=== PATIENT | female | born 1955 | race Caucasian/White ===

== ENCOUNTER → 2016-08-20 | Outpatient (CLI) | payer OTHER | END | disposition home or self-care (01) | LOC: LAB.O 09:50 | PROVIDERS: ATTEND Obstetrics & Gynecology | DX: Z01.411 Encounter for gynecological examination (general) (routine) with abnormal findings (principal); E78.5 Hyperlipidemia, unspecified; N95.1 Menopausal and female climacteric states; E87.70 Fluid overload, unspecified ==

== ENCOUNTER → 2016-09-17 | Outpatient (CLI) | payer OTHER ==
--- NOTE | 2016-09-17 16:25 | MAM ---
History: Well woman exam. Date of exam: 09/17/2016 Services provided: Bilateral full field digital screening mammography. CAD, the images were reviewed with R2 computer aided detection. FINDINGS: Glandular tissue is scattered glandular contour with increased mammographic density. Comparison with 2014 exam. No dominant mass, architectural distortion or clustered microcalcification. Stable distribution to the glandular parenchyma. IMPRESSION: Benign exam Recommendation: Routine annual mammography BIRAD CATEGORY: 2 BENIGN Electronically signed by: Renee Ramos MD 09/17/2016 4:25 PM CDT Workstation: [id number]
== END | disposition home or self-care (01) ==
LOC: MAMMO 09:49
PROVIDERS: ATTEND Obstetrics & Gynecology
DX: Z12.31 Encounter for screening mammogram for malignant neoplasm of breast (principal)
CPT/HCPCS: 36415; 82607; 85025; 85610; 85730; G0202

== ENCOUNTER 2016-11-20 15:36 | Emergency (ER) | payer OTHER ==
--- NOTE | 2016-11-20 15:55 | RAD ---
PROCEDURE: Foot,Right 2 Views CLINICAL HISTORY: lateral right foot pain. INDICATION: Same as above COMPARISON: None . TECHNIQUE: 2.0 Views of the right foot were done. FINDINGS: There is an age indeterminate nonunited fracture in the proximal aspect of the fifth metatarsal bone of the right foot The joint spaces are relatively well-maintained. There is no evidence of bony tarsal coalition. The soft tissues are radiographically unremarkable. There is no visualization of any radiopaque foreign bodies in the visualized soft tissues. IMPRESSION: There is an age indeterminate nonunited fracture in the proximal aspect of the fifth metatarsal bone of the right foot Electronically signed by: Jorge Boston MD 11/20/2016 3:54 PM CDT Workstation: [id number]
--- NOTE | 2016-11-20 16:05 | ED.PDOC ---
History of Present Illness - General Chief Complaint: Lower Extremity Injury Stated Complaint: right lateral foot pain Time Seen by Provider: 11/20/16 15:39 Source: patient, RN notes reviewed Exam Limitations: no limitations Additional Information: Patient was going down the stairs from a boat when she felt a pop and sudden pain along the lateral aspect of her right foot. She presented to the ER to see if she had a fracture. She is currently being seen by a Rotary Drill Operator for left foot /heel bone spur and achilles tendonitis. - History of Present Illness Occurred: just prior to arrival Pain - Lower Extremity: moderate: Right Foot Method of Injury: other - going down the stairs off the back of a boat Improving Factors: immobilization Worsening Factors: movement - /weight-bearing Allergies/Adverse Reactions: Allergies Amitriptyline Allergy (Unverified 01/10/13 12:57) Home Medications: Ambulatory Orders Pantoprazole Suspension [Protonix Suspension] 40 mg PO DAILY 01/10/13 Trazodone HCl 150 mg PO HS 01/10/13 Esterified Estrogens [Menest] 0.625 mg PO AM 05/03/13 Hctz 50 mg/Triamterene 75 mg [Maxzide-50] 1 ea PO AM 05/03/13 Ipratropium/Albuterol Inhaler [Combivent Inhaler] 1 puff INH .Q4 PRN 05/03/13 Alendronate Sodium 70 mg PO ONCE 08/13/13 Lovastatin 20 mg PO HS 08/13/13 Meloxicam [Mobic] 7.5 mg PO HS 08/13/13 Pramipexole Dihydrochloride [Mirapex] 0.125 mg PO DAILY 08/13/13 Budesonide-Formoterol Fumarate [Symbicort] 1 aer IN BID 03/24/15 Calcium Carbonate-Vitamin D [Calcium 600+D 600-200 mg-Unit] 1 tab PO BID Multiple Vitamin [Multi Vitamin Daily] 1 tab PO DAILY 03/24/15 Review of Systems - Review of Systems Constitutional: States: no symptoms reported EENTM: States: no symptoms reported Respiratory: States: no symptoms reported Cardiology: States: no symptoms reported Gastrointestinal/Abdominal: States: no symptoms reported Genitourinary: States: no symptoms reported Musculoskeletal: States: see HPI Skin: States: no symptoms reported Neurological: States: no symptoms reported Endocrine: States: no symptoms reported Hematologic/Lymphatic: States: no symptoms reported Past Medical History (General) - Patient Medical History Hx Seizures: No Hx Stroke: No Hx Asthma: Yes Hx of COPD: No Hx Cardiac Disorders: No Hx Congestive Heart Failure: No Hx Pacemaker: No Hx Hypertension: No Hx Diabetes: No Hx MRSA: No - Social History Hx Alcohol Use: No Hx Substance Use: No Hx Physical Abuse: No Hx Emotional Abuse: No Family Medical History - Family History Grandparents Family History: No Known Physical Exam - Physical Exam General Appearance: Alert, Comfortable, No apparent distress, Well Developed, Well Groomed, Well Hydrated, Well Nourished Eyes, Ears, Nose, Throat: PERRL/EOMI Neck: non-tender, full range of motion, supple Cardiovascular/Respiratory: regular rate, rhythm, normal peripheral pulses Gastrointestinal/Abdominal: non-tender Thigh/Hip: normal ROM Leg: normal ROM Knee: normal ROM Ankle: no evidence of injury, normal ROM Foot: no evidence of injury, normal ROM, bone tenderness - along lateral aspect of foot near the base of the 5th metatarsal Neuro/Tendon: normal sensation, normal motor functions, normal tendon functions , responds to pain, no evidence tendon injury Mental Status: alert, oriented x 3 Skin: normal color Progress - Progress Progress: 11/20/16 16:05 X-Ray Report: PROCEDURE: Foot,Right 2 Views CLINICAL HISTORY: lateral right foot pain. INDICATION: Same as above COMPARISON: None . TECHNIQUE: 2.0 Views of the right foot were done. FINDINGS: There is an age indeterminate nonunited fracture in the proximal aspect of the fifth metatarsal bone of the right foot The joint spaces are relatively well-maintained. There is no evidence of bony tarsal coalition. The soft tissues are radiographically unremarkable. There is no visualization of any radiopaque foreign bodies in the visualized soft tissues. IMPRESSION: There is an age indeterminate nonunited fracture in the proximal aspect of the fifth metatarsal bone of the right foot Electronically signed by: Jorge Boston MD 11/20/2016 3:54 PM CDT Workstation: [id number] Dictated By: Jorge Santiago Signed By: Jorge Santiago Dictated Date/Time: 11/20/16 1539 Transcribed Date/Time: 11/20/16 1539 Wildland Firefighter: JOSE M Signed Date/Time: 11/20/16 1554 CC: Procedures - Splinting Right Foot Hand-Made Type: orthoglass Splint: posterior walking Pre-Proc Neuro Vasc Exam: normal Post-Proc Neuro Vasc Exam: normal Departure - Departure Clinical Impression: Fracture of fifth metatarsal bone Qualifiers: Encounter type: initial encounter Fracture type: closed Fracture alignment: nondisplaced Laterality: right Qualified Code(s): S92.354A - Nondisplaced fracture of fifth metatarsal bone, right foot, initial encounter for closed fracture Time of Disposition: 16:25 Disposition: Discharge to Home or Self Care Condition: Fair Instructions: DI for Foot Fracture Referrals: Rei Pickens III, MD [Primary Care Provider] - 1-2 Weeks Home Medications: Ambulatory Orders Pantoprazole Suspension [Protonix Suspension] 40 mg PO DAILY 01/10/13 Trazodone HCl 150 mg PO HS 01/10/13 Esterified Estrogens [Menest] 0.625 mg PO AM 05/03/13 Hctz 50 mg/Triamterene 75 mg [Maxzide-50] 1 ea PO AM 05/03/13 Ipratropium/Albuterol Inhaler [Combivent Inhaler] 1 puff INH .Q4 PRN 05/03/13 Alendronate Sodium 70 mg PO ONCE 08/13/13 Lovastatin 20 mg PO HS 08/13/13 Meloxicam [Mobic] 7.5 mg PO HS 08/13/13 Pramipexole Dihydrochloride [Mirapex] 0.125 mg PO DAILY 08/13/13 Budesonide-Formoterol Fumarate [Symbicort] 1 aer IN BID 03/24/15 Calcium Carbonate-Vitamin D [Calcium 600+D 600-200 mg-Unit] 1 tab PO BID Multiple Vitamin [Multi Vitamin Daily] 1 tab PO DAILY 03/24/15 Additional Instructions: Follow-up with Rotary Drill Operator as scheduled on November 08 for re-evaluation. Ice and elevate right foot for at least 10 to 15 minutes, three to four times a day to help with pain and swelling. Non-weight bearing (use crutches) for 3 to 5 days.
[2016-11-20 16:09] VITALS: BP 149/94; TEMP 98.7; O2SAT 96
== END 2016-11-20 16:39 | disposition home or self-care (01) ==
LOC: ER 15:36
DX: S92.354A Nondisplaced fracture of fifth metatarsal bone, right foot, initial encounter for closed fracture (principal); M77.32 Calcaneal spur, left foot; M76.62 Achilles tendinitis, left leg; Z79.899 Other long term (current) drug therapy; Z88.8 Allergy status to other drugs, medicaments and biological substances; W10.9XXA Fall (on) (from) unspecified stairs and steps, initial encounter; Y92.814 Boat as the place of occurrence of the external cause

== ENCOUNTER → 2017-01-18 | Outpatient (CLI) | payer OTHER | END | disposition home or self-care (01) | LOC: GMAL 10:56 | PROVIDERS: ATTEND Family Medicine | DX: R30.0 Dysuria (principal) ==

== ENCOUNTER → 2017-08-22 | Outpatient (CLI) | payer OTHER | LOC: LAB.O 11:29 | PROVIDERS: ATTEND Obstetrics & Gynecology | DX: Z01.411 Encounter for gynecological examination (general) (routine) with abnormal findings (principal) ==

== ENCOUNTER → 2017-10-06 | Outpatient (CLI) | payer OTHER ==
--- NOTE | 2017-10-07 15:55 | MAM ---
EXAM DESCRIPTION: 3D Screening BILATERAL : Digital Mammography. CLINICAL HISTORY: 62 years Female SCREENING . No complaints. Remote family history of breast cancer. Childbirth. Postmenopausal. Has taken HRT 5 or more years ago. Bilateral cyst aspirations. COMPARISON: 2-D digital screening bilateral study 09/17/2016. Report from prior examination also reviewed. TECHNIQUE: Bilateral CC and MLO projection full-field images, 3-D tomosynthesis digital mammographic technique. CAD not utilized. FINDINGS: The breast parenchymal density pattern is: Scattered areas of fibroglandular density. No skin thickening or nipple retraction. Bilateral solitary microcalcifications. No focal, stellate mass or density, focal asymmetry , and no suspicious microcalcifications bilaterally. Stable mammograms compared to prior study, taking into account differences in mammographic technique IMPRESSION: BI-RADS CATEGORY: 2 - BENIGN FINDINGS. FOLLOW UP: Routine digital bilateral screening, one year interval from 2018. Written communication explaining the IMPRESSION and follow-up, will be mailed to the patient and referring health care provider. According to the [employer], yearly mammograms are recommended starting at age 40 and continuing as long as a woman is in good health. Any breast change noted on a breast self-exam should be reported promptly to the patient's healthcare provider. Breast MRI is recommended for women with an approximately 20-25% or greater lifetime risk of breast cancer, including women with a strong family history of breast or ovarian cancer and women who have been treated for Hodgkin's disease. A negative mammographic report should not delay tissue diagnosis in patients with significant clinical history or physical findings. Extremely dense breast tissue limits the sensitivity of digital mammography. Electronically signed by: Fortunato Mcclellan MD 10/07/2017 3:53 PM CDT
== END ==
LOC: MAMMO 10:00
PROVIDERS: ATTEND Family Medicine
DX: Z12.31 Encounter for screening mammogram for malignant neoplasm of breast (principal)

== ENCOUNTER 2018-02-13 16:26 | Emergency (ER) | payer OTHER ==
[2018-02-13 17:04] VITALS: TEMP 99
--- NOTE | 2018-02-13 17:07 | RAD ---
EXAM DESCRIPTION: Chest,2 Views CLINICAL HISTORY: RIGHT SIDED PAIN WITH INSPIRATION COMPARISON: None. FINDINGS: Single view of the chest is submitted. Cardiac silhouette is normal. There is mild atelectasis at the left lung base. No focal parenchymal or pleural disease. No acute bony abnormality. There is no significant pulmonary vascular engorgement. IMPRESSION: No evidence of acute cardiopulmonary disease. Electronically signed by: Fortunato Skinner 02/13/2018 5:06 PM CDT
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
[2018-02-13] MEDS: KETOROLAC TROMETHAMINE INJ 30 MG/ML VIAL IM ONE (17:30)
--- NOTE | 2018-02-13 17:33 | RAD ---
EXAM DESCRIPTION: Ribs,Right 3 Views CLINICAL HISTORY:62 years Female, rib pain Comparison: None FINDINGS: No focal lung consolidation. No pleural effusion. No pneumothorax. Cardiac and mediastinal silhouette is unremarkable. Dedicated views of the right ribs show no acute fractures. Soft tissues are unremarkable. IMPRESSION: No acute findings. Electronically signed by: Edgardo Au DO 02/13/2018 5:32 PM CDT
[2018-02-13] MEDS: HYDROCOD/APAP 7.5/325 (ER DISP) #3 TAB PO ONE (18:37)
[2018-02-13 18:39] VITALS: BP 154/84; O2SAT 97
== END 2018-02-13 18:39 | disposition home or self-care (01) ==
LOC: ER 16:26
DX: S20.211A Contusion of right front wall of thorax, initial encounter (principal); I49.3 Ventricular premature depolarization; J45.909 Unspecified asthma, uncomplicated; Z79.899 Other long term (current) drug therapy; Z88.8 Allergy status to other drugs, medicaments and biological substances; V49.49XA Driver injured in collision with other motor vehicles in traffic accident, initial encounter; Y92.410 Unspecified street and highway as the place of occurrence of the external cause
CPT/HCPCS: 71046; 71101; 80048; 80076; 82550; 82553; 84484; 85025; 85610; 85730; 93005; J1885

== ENCOUNTER → 2019-10-16 | Outpatient (CLI) | payer BC | LOC: LAB.O 06:59 | PROVIDERS: ATTEND Obstetrics & Gynecology | DX: Z01.419 Encounter for gynecological examination (general) (routine) without abnormal findings (principal) ==

== ENCOUNTER → 2019-10-18 | Outpatient (CLI) | payer BC ==
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
--- NOTE | 2019-10-18 13:08 | RAD ---
EXAM DESCRIPTION: Pelvis CLINICAL HISTORY: 64 years Female, HIP PAIN COMPARISON: None. FINDINGS: Single view of the pelvis demonstrates the bony pelvic ring and SI joints and symphysis pubis intact. No fracture or deformity noted. Heterotopic bone formation at the superior margin of the left greater trochanter is again seen. No soft tissue mass is noted. The superior and inferior pubic rami intact. IMPRESSION: No acute abnormality involving the pelvis. Electronically signed by: Jacoby Barnes MD 10/18/2019 1:06 PM CDT
== END ==
LOC: RAD 07:52
PROVIDERS: ATTEND Orthopaedic Surgery
DX: M16.11 Unilateral primary osteoarthritis, right hip (principal); M89.9 Disorder of bone, unspecified

== ENCOUNTER → 2019-10-19 | Outpatient (CLI) | payer BC | LOC: LAB.O 07:59 | PROVIDERS: ATTEND Obstetrics & Gynecology | DX: R73.09 Other abnormal glucose (principal) ==

== ENCOUNTER → 2019-10-22 | Outpatient (CLI) | payer BC | LOC: LAB.O 12:07 | PROVIDERS: ATTEND Obstetrics & Gynecology | DX: R89.9 Unspecified abnormal finding in specimens from other organs, systems and tissues (principal) ==

== ENCOUNTER → 2020-01-14 | Outpatient (CLI) | payer BC | LOC: LAB 07:06 | PROVIDERS: ATTEND Obstetrics & Gynecology | DX: E74.39 Other disorders of intestinal carbohydrate absorption (principal); F41.8 Other specified anxiety disorders ==

== ENCOUNTER → 2020-05-05 | Outpatient (CLI) | payer BC | LOC: LAB.O 10:14 | PROVIDERS: ATTEND Obstetrics & Gynecology | DX: R25.2 Cramp and spasm (principal); E53.8 Deficiency of other specified B group vitamins ==

== ENCOUNTER → 2020-05-19 | Outpatient (CLI) | payer BC ==
--- NOTE | 2020-05-19 15:07 | RAD ---
EXAM DESCRIPTION: Hip Bilateral (accession [id number]), Pelvis (accession [id number]) CLINICAL HISTORY: 64 years Female, BILATERAL HIP JOINT PAIN COMPARISON: October 18, 2019 Findings: Five view(s)/radiograph(s) Osteopenia. Mild bilateral hip osteoarthritis. Similar heterotopic ossification adjacent the left greater trochanter. No acute fracture or dislocation. No focal soft tissue swelling. IMPRESSION: No acute osseous abnormality in the pelvis. Electronically signed by: Jose Alberto Cox MD 05/19/2020 3:06 PM [facility]
--- NOTE | 2020-05-19 15:08 | RAD ---
EXAM DESCRIPTION: Hip Bilateral (accession [id number]), Pelvis (accession [id number]) CLINICAL HISTORY: 64 years Female, BILATERAL HIP JOINT PAIN COMPARISON: October 18, 2019 Findings: Five view(s)/radiograph(s) Osteopenia. Mild bilateral hip osteoarthritis. Similar heterotopic ossification adjacent the left greater trochanter. No acute fracture or dislocation. No focal soft tissue swelling. IMPRESSION: No acute osseous abnormality in the pelvis. Electronically signed by: Jose Alberto oCx MD 05/19/2020 3:06 PM [facility]
== END ==
LOC: RAD 09:48
PROVIDERS: ATTEND Orthopaedic Surgery
DX: M25.551 Pain in right hip (principal)

== ENCOUNTER → 2020-05-26 | Outpatient (CLI) | payer BC ==
--- NOTE | 2020-05-26 14:45 | US ---
EXAM: Venous,Lower Extremity LT CLINICAL HISTORY: rule out DVT/ localized edema COMPARISON STUDY: None FINDINGS: Fischer scale imaging, Doppler and color flow evaluation of the lower extremity deep venous system shows good compression augmentation of the common femoral vein, superficial femoral vein and popliteal vein. No evidence of thrombus within the calf. IMPRESSION: NO EVIDENCE OF DEEP VENOUS THROMBOSIS WITHIN THE LEFT LOWER EXTREMITY. Electronically signed by: Remigio Jones MD 05/26/2020 2:43 PM NURSE INTERN
== END ==
LOC: US 08:59
PROVIDERS: ATTEND Orthopaedic Surgery
DX: R60.0 Localized edema (principal)

== ENCOUNTER → 2020-06-04 | Outpatient (CLI) | payer BC | LOC: LAB.O 09:14 | PROVIDERS: ATTEND Obstetrics & Gynecology | DX: E74.39 Other disorders of intestinal carbohydrate absorption (principal) ==